=== PATIENT | male | born 1995 | race African-American/Black ===

== ENCOUNTER 2017-05-22 17:38 | Emergency (ER) | payer SELFPAY ==
[~2017-05-22] VITALS: Ht 167.6 cm; Wt 60.0 kg
[2017-05-22 17:40] VITALS: BP 140/74; PULSE 81; RESP 16; TEMP 98.2; O2SAT 98
--- NOTE | 2017-05-22 20:49 | PD ---
HPI Chief Complaint: Foreign Body Time Seen by Provider: 20:30 Travel History International Travel<30 days: No Contact w/Intl Traveler<30days: No Traveled to known affect area: No History of Present Illness HPI Patient comes in with concerns of possible retained foreign body in his right earlobe. Patient states that he noticed he was missing his right earring today and felt a small bump on the earlobe was concerned that the part of the earring may still be in his ear. Patient tried squeezing without any success. Denies any pain with this. Denies anything making it better or worse. Reports tetanus shot is up-to-date. Reports piercing is approximately 3 months old. Denies any fevers. PFSH Past Medical History Medical History: Denies Significant Hx Past Surgical History Surgical History: No Previous Surgery Social History Alcohol Use: No Tobacco Use: No Substance Use: No Allergies-Medications (Allergen,Severity, Reaction): Coded Allergies: No Known Allergies (Unverified , 05/22/17) Reported Meds & Prescriptions Reported Meds & Active Scripts Active Bactrim DS (Sulfamethoxazole-Trimethoprim) 800-160 Mg Tab 1 Tab PO BID Review of Systems Except as stated in HPI: all other systems reviewed are Neg Physical Exam Narrative GENERAL: Well-developed, well nourished, in no acute distress, and non-ill appearing. SKIN: Focused skin assessment warm and dry. Small pimple-appearing lesion noted over the anterior and posterior aspect of the right ear lobe at site of piercing. It is nontender to palpation. There is no surrounding erythematous. There is no crepitus. HEAD: Atraumatic. Normocephalic. EYES: Pupils equal and round. EOMI. No scleral icterus. No injection or drainage. ENT: No nasal bleeding or discharge. Mucous membranes pink and moist. NECK: Trachea midline. Supple. No nuclear rigidity. RESPIRATORY: No accessory muscle use. No respiratory distress. MUSCULOSKELETAL: No obvious deformities. No clubbing. No cyanosis. No edema. Full range of motion. NEUROLOGICAL: Awake and alert. No obvious cranial nerve deficits. Motor grossly within normal limits. Normal speech. PSYCHIATRIC: Appropriate mood and affect; insight and judgment normal. Data Data Last Documented VS Vital Signs Date Time Temp Pulse Resp B/P (MAP) Pulse Ox O2 Delivery O2 Flow Rate FiO2 05/22/17 20:55 05/22/17 17:40 98.2 81 16 98 Orders Orders Wound Culture And Gram Stain (05/22/17 20:42) Ed Discharge Order (05/22/17 20:51) [facility] Medical Decision Making Medical Screen Exam Complete: Yes Emergency Medical Condition: Yes Differential Diagnosis Foreign body, abscess, infected piercing, cellulitis, gangrene, other Narrative Course Patient in no obvious distress upon re-evaluation. Patient was asked if they wanted to speak to my attending, which the patient did not wish to do at this time. Any questions/concerns in reference to patient diagnosis/condition discussed and clarified prior to patient's discharge. Reinforced sheer importance of close follow up with patient's primary physician or primary care clinic. Instructed patient to return to ED immediately, if symptoms return/ worsen. Patient showed understanding of above instructions. Further instructions and recommendations were detailed in discharge paperwork. Patient ambulated without difficulty out of ED at discharge. Procedures Procedure Narrative Verbal consent was obtained. Right earlobe was manually explored. There is no foreign body noted however pulseless elicited. Culture was obtained. Patient tolerated procedure well. There is no complications. Diagnosis Primary Impression: Abscess of earlobe Qualified Codes: H60.01 - Abscess of right external ear Referrals: [facility] Patient Instructions: Ear Infection (ED), General Instructions Additional Instructions: Follow-up with your primary care physician or return here in 2 days for recheck. Take all medication as prescribed. Keep wound dry and clean as possible using soap and water. Return to the emergency department if symptoms get worse. Med/Other Pt SpecificInfo: Prescription(s) given Scripts Sulfamethoxazole-Trimethoprim (Bactrim DS) 800-160 Mg Tab 1 TAB PO BID for Infection, #20 TAB 0 Refills Prov: Dakotah Muir MD 05/22/17 Disposition: 01 DISCHARGE HOME Condition: Stable Nael Ruiz May 22, 2017 20:49
[2017-05-22] MEDS ORDERED: BACT800T5 PO (20:50)
== END 2017-05-22 21:32 | disposition home or self-care (01) ==
LOC: NEPD 17:38
DX: H60.01 Abscess of right external ear (principal)
CPT/HCPCS: 86403; 87070; 87205; 99283